=== PATIENT | female | born 1985 | race Hispanic/Latino ===

== ENCOUNTER 2016-08-19 19:05 | Emergency (ER) | payer OTHER ==
[2016-08-19 19:39] VITALS: BP 115/68; PULSE 85; RESP 16; TEMP 98.4; O2SAT 99
--- NOTE | 2016-08-19 21:00 | ED PDOC ---
HPI: Skin/Bite Injury Time Seen by Provider: 08/19/16 20:15 Chief Complaint (Nursing): Abnormal Skin Integrity Chief Complaint (Provider): laceration History Per: Patient History/Exam Limitations: no limitations Onset/Duration Of Symptoms: Mins (prior to arrival ) Current Symptoms Are (Timing): Still Present Additional Complaint(s): Linda Grady is a 30 year old female, with no previous medical history, who presents to the ED with complaints of a laceration she sustained to her left 3rd digit secondary to attempting to remove the pit from an avocado prior to arrival. Patient reports tetanus up to date. She denies any numbness or tingling. PMD: none provided Past Medical History Reviewed: Historical Data, Nursing Documentation, Vital Signs Vital Signs: Last Vital Signs Temp 98.4 F 08/19/16 19:37 Pulse 85 08/19/16 19:37 Resp 16 08/19/16 19:37 BP 115/68 08/19/16 19:37 Pulse Ox 99 08/19/16 21:08 - Medical History PMH: No Chronic Diseases - Surgical History Surgical History: No Surg Hx - Family History Family History: States: Unknown Family Hx - Allergies Allergies/Adverse Reactions: Allergies Allergy/AdvReac Type Severity Reaction Status Date / Time Penicillins Allergy URTICARIA Verified 08/19/16 19:40 Review of Systems ROS Statement: Except As Marked, All Systems Reviewed And Found Negative Skin: Positive for: Other (laceration on the left hand 3rd digit ) Physical Exam - Reviewed Nursing Documentation Reviewed: Yes Vital Signs Reviewed: Yes - Physical Exam Appears: Positive for: Well, Non-toxic, No Acute Distress Extremity: Positive for: Normal ROM (able to flex and extend digit ), Capillary Refill (< 2 seconds ), Other (1 cm laceration medial aspect to distal phalanx ) . Negative for: Swelling Neurologic/Psych: Positive for: Alert, Oriented - ECG O2 Sat by Pulse Oximetry: 99 (RA) Pulse Ox Interpretation: Normal - Progress ED Course And Treament: Sutures in place with good approximation achieved. Patient tolerated procedure well with no immediate complications. Medical Decision Making Medical Decision Making: Initial Impression: laceration Initial Plan: * lidocaine * laceration repair * reevaluation Scribe Attestation: Documented by Francesca Cassidy, acting as a scribe for Yann Amaya PA-C. Provider Scribe Attestation: All medical record entries made by the Scribe were at my direction and personally dictated by me. I have reviewed the chart and agree that the record accurately reflects my personal performance of the history, physical exam, medical decision making, and the department course for this patient. I have also personally directed, reviewed, and agree with the discharge instructions and disposition. Disposition - Clinical Impression Clinical Impression: Finger laceration - Patient ED Disposition Is Patient to be Admitted: No - Disposition Disposition: Routine/Home Disposition Time: 21:27 Condition: FAIR Additional Instructions: RETURN TO ED OR F/U WITH PMD FOR REMOVAL OF SUTURES IN 7 DAYS. Instructions: Finger Laceration (ED) Forms: [facility] ED School/Work Excuse Laceration - Laceration Repair left hand 3rd digit Wound Length (In cm): 1 Description Of Wound: Linear Wound Cleansed With: Betadine Anesthesia: Lidocaine 1% Wound Examination: Irrigated With Saline, No FB With Wound Exploration, No Tendon Injury With Wound Exploration Wound Closure: Suture (x 4) Suture Technique And Material Used: Interrupted, Nylon (5-0) Wound Complexity: Simple
== END 2016-08-19 22:04 | disposition home or self-care (01) ==
LOC: H.ER 19:05
DX: S61.203A Unspecified open wound of left middle finger without damage to nail, initial encounter (principal); W26.0XXA Contact with knife, initial encounter; Y92.89 Other specified places as the place of occurrence of the external cause; Z88.0 Allergy status to penicillin

== ENCOUNTER 2016-10-04 04:55 | Emergency (ER) | payer OTHER ==
[2016-10-04 05:16] VITALS: BP 125/74; PULSE 85; RESP 17; TEMP 98; O2SAT 98
[2016-10-04] MEDS ORDERED: DiphenhydrAMINE 50 mg/ml Inj IV STA (05:34)
[2016-10-04] MEDS ORDERED: Sodium Chloride 0.9% 1,000 ML IV STA (05:35)
[2016-10-04] MEDS ORDERED: DiphenhydrAMINE 50 mg/ml Inj ONE (05:46)
--- NOTE | 2016-10-04 06:40 | ED PDOC ---
HPI: Allergic Reaction Time Seen by Provider: 10/04/16 05:21 Chief Complaint (Nursing): Allergic Reaction Chief Complaint (Provider): Allergic Reaction History Per: Patient History/Exam Limitations: no limitations Onset/Duration Of Symptoms: Other (x1 week) Current Symptoms Are (Timing): Still Present Associated Symptoms: Skin Rash, Itching Additional Complaint(s): 30 year old female presents to ED with complaints of an intermittent rash x1 week and has no past medical history. Patient notes she was started on Bactrim x1 week ago, and x2 days ago went to [facility] ED where she was treated with Benadryl , Pepcid, and Solumedrol. Confirms that the medications markedly improved her rash, but that last night she developed a recrudescence of the rash. Describes the rash as diffuse, generalized, pruritic, and urticarial. Notes taking Benadryl and Prednisone initially improved the rash before making it worse. (-) fever, SOB, trouble swallowing, or oral lesions. PCP: [facility] Past Medical History Reviewed: Historical Data, Nursing Documentation, Vital Signs Vital Signs: Last Vital Signs Temp 98.0 F 10/04/16 05:08 Pulse 85 10/04/16 05:08 Resp 17 10/04/16 05:08 BP 125/74 10/04/16 05:08 Pulse Ox 98 10/04/16 05:08 - Medical History PMH: No Chronic Diseases - Surgical History Surgical History: No Surg Hx - Family History Family History: States: No Known Family Hx - Social History Current smoker - smoking cessation education provided: No Ex-Smoker (has not smoked in the last 12 months): No Alcohol: None Drugs: Denies - Home Medications Home Medications: Ambulatory Orders Medication Instructions Recorded Cetirizine HCl [Zyrtec Allergy] 10 mg PO DAILY #20 sgl 10/04/16 Doxycycline Monohydrate 100 mg PO BID #14 tablet 10/04/16 Famotidine [Pepcid] 20 mg PO BID #28 tab 10/04/16 predniSONE [predniSONE Tab] 40 mg PO DAILY #10 tab 10/04/16 - Allergies Allergies/Adverse Reactions: Allergies Allergy/AdvReac Type Severity Reaction Status Date / Time sulfamethoxazole Allergy Mild hives Verified 10/04/16 05:17 [From Bactrim] sulfur [From Sulfur-8] Allergy Mild hives Verified 10/04/16 05:17 trimethoprim [From Bactrim] Allergy Mild hives Verified 10/04/16 05:17 Penicillins Allergy URTICARIA Verified 08/19/16 19:40 Review of Systems ROS Statement: Except As Marked, All Systems Reviewed And Found Negative Constitutional: Negative for: Fever ENT: Negative for: Throat Swelling (no trouble swallowing), Other (no oral lesions) Respiratory: Negative for: Shortness of Breath Skin: Positive for: Rash Physical Exam - Reviewed Nursing Documentation Reviewed: Yes Vital Signs Reviewed: Yes - Physical Exam Appears: Positive for: Non-toxic, No Acute Distress Skin: Positive for: Warm, Dry, Rash (Diffuse urticarial rash, raised, red, macular) Eye Exam: Positive for: Normal appearance ENT: Positive for: Normal ENT Inspection Neck: Positive for: Normal, Painless ROM, Supple Cardiovascular/Chest: Positive for: Regular Rate, Rhythm. Negative for: Murmur Respiratory: Positive for: Normal Breath Sounds. Negative for: Respiratory Distress Gastrointestinal/Abdominal: Positive for: Normal Exam, Soft. Negative for: Tenderness Extremity: Positive for: Normal ROM. Negative for: Deformity Neurologic/Psych: Positive for: Alert, Oriented. Negative for: Motor/Sensory Deficits - ECG O2 Sat by Pulse Oximetry: 98 (RA) Pulse Ox Interpretation: Normal Disposition - Clinical Impression Clinical Impression: Allergic reaction - Disposition Disposition: Transfer of Care Disposition Time: 07:00 Condition: STABLE Prescriptions: Cetirizine HCl [Zyrtec Allergy] 10 mg PO DAILY #20 sgl Doxycycline Monohydrate 100 mg PO BID #14 tablet Famotidine [Pepcid] 20 mg PO BID #28 tab predniSONE [predniSONE Tab] 40 mg PO DAILY #10 tab Instructions: Antibiotic Medication Allergy (ED) Forms: [facility] (Danish), [facility] ED School/Work Excuse Patient Signed Over To: Jessie Terrazas Handoff Comments: Pending ED work up Medical Decision Making Medical Decision Makin Initial impression: recurring urticarial rash Initial plan: * Labs * Benadryl 50mg IV * NS IV * Pepcid 40mg IV * Soluemdrol 125mg IVP * UA * Re-eval Scribe Attestation: Documented by Lupe Perales acting as a scribe for Shaka Wilder MD. Scribe Attestation: All medical record entries made by the Scribe were at my direction and personally dictated by me. I have reviewed the chart and agree that the record accurately reflects my personal performance of the history, physical exam, medical decision making, and the department course for this patient. I have also personally directed, reviewed, and agree with the discharge instructions and disposition.
--- NOTE | 2016-10-04 10:19 | ED PDOC ---
- ECG O2 Sat by Pulse Oximetry: 98 (RA) Medical Decision Making Medical Decision Making: receieved patient from Dr. Wilder. Patient with presumed allergic reaction to sulfa. Now better after a 2nd dose of IV solumedrol. She was initially treated at [facility] ER. Disposition Doctor Will See Patient In The: Office Counseled Patient/Family Regarding: Diagnosis, Need For Followup, Rx Given - Clinical Impression Clinical Impression: Allergic reaction - POA Present On Arrival: None - Disposition Disposition: Routine/Home Disposition Time: 10:18 Condition: STABLE Prescriptions: Cetirizine HCl [Zyrtec Allergy] 10 mg PO DAILY #20 sgl Doxycycline Monohydrate 100 mg PO BID #14 tablet Famotidine [Pepcid] 20 mg PO BID #28 tab predniSONE [predniSONE Tab] 40 mg PO DAILY #10 tab Instructions: Antibiotic Medication Allergy (ED) Forms: [employer] ([place]icaraguan)
== END 2016-10-04 11:55 | disposition home or self-care (01) ==
LOC: H.ER 04:55
DX: T78.40XA Allergy, unspecified, initial encounter (principal); Z88.0 Allergy status to penicillin

== ENCOUNTER 2017-04-28 12:27 | Emergency (ER) | payer BC, OTHER ==
[2017-04-28 12:51] VITALS: BMI 23.9
[2017-04-28 12:59] VITALS: TEMP 98.2
--- NOTE | 2017-04-28 14:20 | CT ---
PROCEDURE: CT HEAD WITHOUT CONTRAST. HISTORY: dizziness COMPARISON: None available. TECHNIQUE: Axial computed tomography images were obtained through the head/brain without intravenous contrast. Radiation dose: Total exam DLP = 829.66 MGy-cm. This CT exam was performed using one or more of the following dose reduction techniques: Automated exposure control, adjustment of the mA and/or kV according to patient size, and/or use of iterative reconstruction technique. FINDINGS: HEMORRHAGE: No intracranial hemorrhage. BRAIN: No mass effect or edema. No atrophy or chronic microvascular ischemic changes. VENTRICLES: Unremarkable. No hydrocephalus. CALVARIUM: Unremarkable. PARANASAL SINUSES: Unremarkable as visualized. No significant inflammatory changes. MASTOID AIR CELLS: Unremarkable as visualized. No inflammatory changes. OTHER FINDINGS: None. IMPRESSION: Normal CT of the Head.
--- NOTE | 2017-04-28 14:43 | ED PDOC ---
Syncope/Near Syncope/Dizziness Time Seen by Provider: 04/28/17 13:10 Chief Complaint (Nursing): Dizziness/Lightheaded History Per: Patient History/Exam Limitations: no limitations Onset/Duration Of Symptoms: Days (x 3) Current Symptoms Are (Timing): Still Present Additional Complaint(s): Linda is a 31 year old female who presents to the emergency department with dizziness since Friday. Patient states dizziness comes and goes, but states was pretty frequent today particularly when she moves her head. Patient reports "fullness" in her right ear. Patient states she had a cold 1 week ago with dizziness, nausea, but no headache, chest pain, vomiting or loss of consciousness. Patient states she took Meclizine Friday, but not today. Patient reports she has no history of vertigo. PMD: Provider SUNIL Past Medical History Reviewed: Historical Data, Nursing Documentation, Vital Signs Vital Signs: Last Vital Signs Temp 98.2 F 04/28/17 12:58 Pulse 81 04/28/17 12:58 Resp 18 04/28/17 12:58 BP 100/61 04/28/17 12:58 Pulse Ox 99 04/28/17 12:58 - Medical History PMH: No Chronic Diseases - Surgical History Surgical History: No Surg Hx - Family History Family History: States: Unknown Family Hx - Social History Current smoker - smoking cessation education provided: No Alcohol: None Drugs: Denies - Home Medications Home Medications: Ambulatory Orders Medication Instructions Recorded Cetirizine HCl [Zyrtec Allergy] 10 mg PO DAILY #20 sgl 10/04/16 Doxycycline Monohydrate 100 mg PO BID #14 tablet 10/04/16 Famotidine [Pepcid] 20 mg PO BID #28 tab 10/04/16 predniSONE [predniSONE Tab] 40 mg PO DAILY #10 tab 10/04/16 Meclizine [Meclizine*] 25 - 50 mg PO Q6 PRN #30 tab 04/28/17 - Allergies Allergies/Adverse Reactions: Allergies Allergy/AdvReac Type Severity Reaction Status Date / Time sulfamethoxazole Allergy Mild hives Verified 10/04/16 05:17 [From Bactrim] sulfur [From Sulfur-8] Allergy Mild hives Verified 10/04/16 05:17 trimethoprim [From Bactrim] Allergy Mild hives Verified 10/04/16 05:17 Penicillins Allergy URTICARIA Verified 08/19/16 19:40 Review of Systems ROS Statement: Except As Marked, All Systems Reviewed And Found Negative Cardiovascular: Negative for: Chest Pain Gastrointestinal: Positive for: Nausea Neurological: Positive for: Dizziness. Negative for: Headache, Other (loss of consciousness) Physical Exam - Reviewed Nursing Documentation Reviewed: Yes Vital Signs Reviewed: Yes - Physical Exam Appears: Positive for: Well, Non-toxic Head Exam: Positive for: ATRAUMATIC, NORMAL INSPECTION, NORMOCEPHALIC Skin: Positive for: Normal Color, Warm, Dry Eye Exam: Positive for: Normal appearance, EOMI, PERRL. Negative for: Nystagmus ENT: Positive for: Normal ENT Inspection Neck: Positive for: Normal Cardiovascular/Chest: Positive for: Regular Rate, Rhythm Respiratory: Positive for: Normal Breath Sounds. Negative for: Respiratory Distress Gastrointestinal/Abdominal: Positive for: Normal Exam, Soft. Negative for: Tenderness Back: Positive for: Normal Inspection Extremity: Positive for: Normal ROM. Negative for: Deformity Neurologic/Psych: Positive for: Alert, paleology teacher II-XII, Oriented (x 3), Gait (Steady) , Other (Cereballer tests are normal). Negative for: Motor/Sensory Deficits - ECG ECG: Positive for: Interpreted By Me, Viewed By Me ECG Rhythm: Positive for: Normal QRS, Sinus Rhythm (normal). Negative for: ST/ T Changes Rate: 68 O2 Sat by Pulse Oximetry: 99 (RA) Pulse Ox Interpretation: Normal - Progress Re-evaluation Time: 15:49 Condition: Re-examined, Improved Medical Decision Making Medical Decision Making: Time: 13:51 Impression: Vertigo Differentials include, but not limited to: Peripheral vertigo, Benign Positional Vertigo, Acute Labyrinthitis, Acoustic Neuroma, Central Vertigo, Posterior Cerebellar Artery Disorder Plan: - CT Head without Contrast - BMP - Troponin I - ED Urine - ED Urine Dipstick - CBC - Antivert 25 mg PO Time:14:18 CT Head without Contrast FINDINGS: HEMORRHAGE: No intracranial hemorrhage. BRAIN: No mass effect or edema. No atrophy or chronic microvascular ischemic changes. VENTRICLES: Unremarkable. No hydrocephalus. CALVARIUM: Unremarkable. PARANASAL SINUSES: Unremarkable as visualized. No significant inflammatory changes. MASTOID AIR CELLS: Unremarkable as visualized. No inflammatory changes. OTHER FINDINGS: None. IMPRESSION: Normal CT of the Head. Scribe Attestation: Documented by Medhat Padilla, acting as a scribe for Jas Burrows MD Provider Scribe Attestation: All medical record entries made by the Scribe were at my direction and personally dictated by me. I have reviewed the chart and agree that the record accurately reflects my personal performance of the history, physical exam, medical decision making, and the department course for this patient. I have also personally directed, reviewed, and agree with the discharge instructions and disposition. Disposition - Clinical Impression Clinical Impression: Vertigo - Patient ED Disposition Is Patient to be Admitted: No Doctor Will See Patient In The: Office Counseled Patient/Family Regarding: Studies Performed, Need For Followup - Disposition Referrals: Diego Robles MD [Staff Provider] - Gilbert Adhikari MD [Staff Provider] - Disposition: Routine/Home Disposition Time: 15:49 Condition: GOOD Additional Instructions: Take your medications as instructed. Follow up with your PCP in 2-3 days. Prescriptions: Meclizine [Meclizine*] 25 - 50 mg PO Q6 PRN #30 tab PRN Reason: Dizziness Instructions: Vertigo (ED)
[2017-04-28 14:51] VITALS: PULSE 68
[2017-04-28 16:55] VITALS: BP 102/65; RESP 14; O2SAT 100
== END 2017-04-28 16:53 | disposition home or self-care (01) ==
LOC: H.ER 12:27
DX: R42 Dizziness and giddiness (principal); Z88.0 Allergy status to penicillin